=== PATIENT | female | born 1990 | race African-American/Black ===

== ENCOUNTER 2018-08-23 15:38 | Emergency (ER) | payer MEDICAID, MEDICARE ==
[~2018-08-23] VITALS: Ht 162.6 cm; Wt 51.0 kg
[2018-08-23 15:41] VITALS: BP 113/80
--- NOTE | 2018-08-23 16:31 | NUR ---
Patient/Caregiver given discharge instructions and they have confirmed that they understand the instructions. Patient ambulatory with steady gait.
== END 2018-08-23 16:36 | disposition home or self-care (01) ==
LOC: ED 16:32
DX: H10.023 Other mucopurulent conjunctivitis, bilateral (principal); B30.9 Viral conjunctivitis, unspecified; R05 Cough
CPT/HCPCS: 99283

== ENCOUNTER 2018-08-28 13:27 | Emergency (ER) | payer MEDICAID ==
[~2018-08-28] VITALS: Ht 162.6 cm; Wt 49.3 kg
[2018-08-28 13:39] VITALS: BP 90/53
[2018-08-28] MEDS ORDERED: CARBAMIDE PEROXIDE EAR DROPS 6.5%, 15ML EACH EAR ONE (14:30)
[2018-08-28] MEDS ORDERED: CARBAMIDE PEROXIDE EAR DROPS 6.5%, 15ML ONE (14:30)
== END 2018-08-28 16:07 | disposition home or self-care (01) ==
LOC: ED 14:18
DX: H11.32 Conjunctival hemorrhage, left eye (principal); H61.23 Impacted cerumen, bilateral
CPT/HCPCS: 99282

== ENCOUNTER 2018-08-31 08:24 | Emergency (ER) | payer MEDICAID ==
[~2018-08-31] VITALS: Ht 162.6 cm; Wt 49.5 kg
[2018-08-31] MEDS ORDERED: DOCUSATE 50 MG/5 ML, 10ML UDC ONE (08:47)
[2018-08-31] MEDS ORDERED: DOCUSATE 50 MG/5 ML ORAL SOL OT ONE (09:00)
[2018-08-31 12:00] VITALS: BP 93/58
--- NOTE | 2018-08-31 12:01 | NUR ---
LT ear irrigation successful. PT tolerated procedure well. Denied pain, reports improved hearing.
== END 2018-08-31 12:11 | disposition home or self-care (01) ==
LOC: ED 11:00
DX: H61.23 Impacted cerumen, bilateral (principal)
CPT/HCPCS: 69209; 99283